=== PATIENT | male | born 1950 | race Caucasian/White ===

== ENCOUNTER 2024-02-13 11:35 | Outpatient (CLI) | payer MEDICARE, SELFPAY ==
--- NOTE | 2024-02-13 09:15 | DI.RAD_ITS ---
Exam(s) XR HIP RT COMPLETE AP PELVIS EXAM: XR HIP RT COMPLETE AP PELVIS CLINICAL HISTORY: right hip pain. TECHNIQUE: 2D digital imaging was performed of the right hip. Two images were obtained. AP pelvis a nd lateral right hip views were obtained. COMPARISON: CR XR HIP MIN 2V RT from 11/08/2023 CR XR LS SPINE 2-3 VIEWS from 11/08/2023 FINDINGS: BONES: No acute fracture is present. No bony destructive lesion is seen. There are lucencies with scl erotic periphery in the articular surface of the femoral heads bilaterally most suggestive of avascul ar necrosis. The findings are more prominent on the left. There is a subchondral cyst in the acetab ular roof on the left. JOINTS: No dislocation present. There is mild joint space narrowing in the right hip and moderate price nt space narrowing in the left hip. SOFT TISSUE: Vascular calcifications are present. IMPRESSION: 1. Mild degenerative changes seen in the hips bilaterally. 2. Findings in the femoral head suspicious for avascular necrosis. DATA REPOSITORY: RADIATION DOSE DELIVERED:
== END 2024-02-13 11:36 | disposition home or self-care (01) ==
LOC: DIORS 11:35
PROVIDERS: PCP Internal Medicine; Referring Provider Internal Medicine; Visit Provider Student in an Organized Health Care Education/Training Program
DX: M16.11 Unilateral primary osteoarthritis, right hip; I10 Essential (primary) hypertension; E11.9 Type 2 diabetes mellitus without complications; M54.50 Low back pain, unspecified
CPT/HCPCS: 99203; 73502

== ENCOUNTER → 2024-02-24 09:44 | Outpatient (BNVA) | payer MEDICARE, SELFPAY | PROVIDERS: PCP Internal Medicine; Referring Provider Internal Medicine | DX: M16.11 Unilateral primary osteoarthritis, right hip (principal) | CPT/HCPCS: 20611; J1010 ==

== ENCOUNTER → 2024-09-20 09:26 | Outpatient (BNVA) | payer MEDICARE, SELFPAY | PROVIDERS: PCP Internal Medicine; Referring Provider Internal Medicine; Visit Provider Student in an Organized Health Care Education/Training Program | DX: M16.12 Unilateral primary osteoarthritis, left hip (principal) | CPT/HCPCS: 20611; 99213; J1010 ==

== ENCOUNTER → 2024-11-29 08:26 | Outpatient (BNVA) | payer MEDICARE, SELFPAY | PROVIDERS: PCP Internal Medicine; Referring Provider Internal Medicine; Visit Provider Student in an Organized Health Care Education/Training Program | DX: M16.12 Unilateral primary osteoarthritis, left hip (principal) | CPT/HCPCS: 99214 ==

== ENCOUNTER 2025-01-14 02:08 | Outpatient (CLI) | payer MEDICARE, SELFPAY ==
[2025-01-14 09:35] LABS: HCT 39.9 % (40.0-50.0); HGB 13.2 g/dL (13.5-17.5); MCH 31.1 pg (27.0-33.0); MCHC 33.1 % (32.0-36.0); MCV 94 fL (80-95); MPV 10.2 fL (8.0-11.0); Platelet Count 337 10^3/uL (130-400); RBC 4.25 10^6/uL (4.36-5.78); RDW 11.9 % (11.8-14.1); RDW-SD 40.4 fL; WBC 7.81 10^3/uL (4.4-10.8)
[2025-01-14 09:49] LABS: BUN 21 mg/dL (7-18); CREATININE 0.9 mg/dL (0.70-1.30); Calcium 9.4 mg/dL (8.5-10.1); Chloride 105 mmol/L (98-107); Estimated GFR 89.62 (mL/min/1.73m2); Glucose 106 mg/dL (74-106); Potassium 4.3 mmol/L (3.5-5.1); Sodium 141 mmol/L (136-145)
[2025-01-14 09:50] LABS: Hemoglobin A1C 6.4 % (<5.7)
== END 2025-01-14 02:09 | disposition home or self-care (01) ==
LOC: LBO 02:08 → LBN ADD 09:26
PROVIDERS: PCP Internal Medicine; Visit Provider Student in an Organized Health Care Education/Training Program
DX: M16.12 Unilateral primary osteoarthritis, left hip (principal); Z01.818 Encounter for other preprocedural examination; E11.9 Type 2 diabetes mellitus without complications
CPT/HCPCS: 80048; 85027; 83036

== ENCOUNTER 2025-01-14 10:29 | Outpatient (CLI) | payer MEDICARE, SELFPAY ==
--- NOTE | 2025-01-14 08:00 | DI.RAD_ITS ---
Exam(s) XR PELVIS AP EXAM: XR PELVIS AP CLINICAL HISTORY: left hip DJD. TECHNIQUE: 2D digital imaging was performed. Single AP view. COMPARISON: CR XR LS SPINE 2-3 VIEWS from 11/08/2023 CR XR HIP MIN 2V RT from 11/08/2023 CR XR HIP RT COMPLETE AP PELVIS from 02/13/2024 FINDINGS: BONES: No acute fracture is present. No bony destructive lesion is seen. Sclerotic densities are again noted in the femoral heads, left greater than right. Subchondral cyst is again noted in the left superior acetabulum. JOINTS: No dislocation present. There is moderate narrowing of the left hip joint space and mild joint space narrowing on the right. Periarticular spurring is noted bilaterally, left greater than right. SOFT TISSUE: Normal. IMPRESSION: Moderate degenerative changes of the left hip. Mild degenerative changes of the right hip. 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 DATA REPOSITORY: RADIATION DOSE DELIVERED:
== END 2025-01-14 10:30 | disposition home or self-care (01) ==
LOC: DIORS 10:29
PROVIDERS: PCP Internal Medicine; Visit Provider Physician Assistant
DX: Z01.818 Encounter for other preprocedural examination (principal); M16.12 Unilateral primary osteoarthritis, left hip; I10 Essential (primary) hypertension
CPT/HCPCS: 99024; 72170

== ENCOUNTER 2025-01-22 05:53 | Day surgery (SDC) | payer MEDICARE, SELFPAY ==
[2025-01-22] VITALS (18 sets, daily range): BP systolic 111–139; BP diastolic 51–89; PULSE 46–77; RESP 8–21; TEMP 35.8–36.4; O2SAT 91–99; BMI 24.3
[2025-01-22] MEDS: Lactated Ringers 1,000 ML 80 ML IV (06:44)
[2025-01-22] MEDS: Celecoxib 200 MG CAP 400 MG PO (06:44)
[2025-01-22] MEDS: Acetaminophen 500 MG TAB 1000 MG PO (06:45)
--- NOTE | 2025-01-22 07:08 | W.ANESPRE ---
General Info Date of Service Date Performed: 01/22/25 Height: 6 ft 1 in Weight: 83.8 kg Body Mass Index (BMI): 24.3 Surgical Procedure: Operation Date: 01/22/25 07:50 Proposed Procedure Side Surgeon p Hip Total Hip Anterior, ACTIS Left Sherwin Leal MD Actual Procedure Side Surgeon p Hip Total Hip Anterior, ACTIS Left Sherwin Leal MD Meds Allergies and Home Medications Allergies Allergy/AdvReac Type Severity Reaction Status Date / Time No Known Allergies Allergy Verified 01/22/25 06:25 Home Medication ?Medication ?Instructions ?Recorded atorvastatin 10 mg tablet 10 mg PO DAILY 12/20/23 donepezil 10 mg tablet 10 mg PO QHS 12/20/23 lisinopril 20 mg tablet 20 mg PO DAILY 12/20/23 memantine 10 mg tablet 10 mg PO QPM 12/20/23 metformin 500 mg tablet 500 mg PO DAILY 12/20/23 calcium carbonate 600 mg PO DAILY 01/14/25 cholecalciferol (vitamin D3) 25 25 mcg PO DAILY 01/14/25 mcg (1,000 unit) capsule [id number] 300 mcg-K 60 1 tab PO DAILY 01/14/25 mcg-lycop 600 mcg-lutein 300 mcg tablet (Centrum Silver Men) acetaminophen 500 mg tablet 1,000 mg (2 x 500 mg) PO Q8H PRN 01/22/25 pain #90 tabs aspirin 81 mg tablet,delayed 81 mg PO BID 30 days #60 tabs 01/22/25 release celecoxib 200 mg capsule (Celebrex) 200 mg PO BID PRN #60 caps 01/22/25 dexamethasone 4 mg tablet 4 mg PO DAILY #2 tabs 01/22/25 docusate sodium 100 mg capsule 100 mg PO BID #28 caps 01/22/25 (Colace) oxycodone 5 mg tablet 5 mg PO Q6H PRN #12 tabs 01/22/25 pantoprazole 40 mg tablet,delayed 40 mg PO DAILY #14 tabs 01/22/25 release Current Visit Medications: Current Medications Generic Name Dose Route Start Last Admin Trade Name Freq PRN Reason Stop Dose Admin Acetaminophen 1,000 mg 01/22/25 06:00 01/22/25 06:45 Acetaminophen 500 Mg Tab PO 01/22/25 23:59 1,000 mg PREOP JOHNATHAN Administration Celecoxib 400 mg 01/22/25 06:00 01/22/25 06:44 Celecoxib 200 Mg Cap PO 01/22/25 23:59 400 mg PREOP JOHNATHAN Administration Ringer's Solution 1,000 mls @ 80 mls/hr 01/22/25 06:00 01/22/25 06:44 IV 01/22/25 23:59 80 mls/hr INFUSION JOHNATHAN Administration Cefazolin Sodium/Dextrose 2 gm in 50 mls @ 100 mls/hr 01/22/25 06:00 Ancef Duplex IVPB 01/22/25 23:59 PREOP JOHNATHAN Tranexamic Acid/Sodium Chloride 1,000 mg in 100 mls @ 600 mls/hr 01/22/25 06:00 IVPB 01/22/25 23:59 PREOP JOHNATHAN IV Miscellaneous Supplies 1 each 01/22/25 06:00 Iv Access IV 01/22/25 23:59 DIRECTED JOHNATHAN Sodium Chloride 0 ml 01/22/25 06:00 Normal Saline Flush 10 Ml Syr IV 01/22/25 23:59 PRN PRN Sodium Chloride 0 ml 01/22/25 06:00 Normal Saline 10 Ml Vial IJ 01/22/25 23:59 DIRECTED PRN Sterile Water 0 ml 01/22/25 06:00 Water,Injection,Sterile 10 Ml Vial IJ 01/22/25 23:59 DIRECTED PRN PFSH Active Problems Active Problems: Problem Status Onset Code Osteoarthritis of left hip Acute M16.12 Type 2 diabetes mellitus Acute E11.9 Minimal cognitive impairment Acute G31.84 Hypertension Chronic I10 Hyperlipidemia Acute E78.5 Helicobacter pylori (H. 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 Surgical History Surgical History History of esophagogastroduodenoscopy (EGD) History of colonoscopy Tobacco Smoking/Tobacco Use Status: Former Tobacco Use Alcohol Alcohol Intake: current Alcohol intake frequency: 0-2 drinks per day Alcohol type: wine Substance Use Substance use type: does not use Vital Signs and Lab Results Vital Signs Most Recent Vital Signs in EMR: Most Recent Vital Signs Temp Pulse Resp BP Pulse Ox 36.3 C L 56 L 16 128/82 99 01/22/25 06:27 01/22/25 06:27 01/22/25 06:27 01/22/25 06:27 01/22/25 06:27 Point of Care Results Point of Care Results: Finger Stick Blood Glucose 131 01/22/25 06:15 Lab Results Complete Blood Count: WBC, (4.4-10.8) 7.81 10^3/uL 01/14/25, 09:05 RBC, (4.36-5.78) 4.25 10^6/uL L 01/14/25, 09:05 Hgb, (13.5-17.5) 13.2 g/dL L 01/14/25, 09:05 Hct, (40.0-50.0) 39.9 % L 01/14/25, 09:05 Plt Count, (130-400) 337 10^3/uL 01/14/25, 09:05 Complete Metabolic Panel: Sodium, (136-145) 141 mmol/L 01/14/25, 09:05 Potassium, (3.5-5.1) 4.3 mmol/L 01/14/25, 09:05 Chloride, (98-107) 105 mmol/L 01/14/25, 09:05 Carbon Dioxide, (21.0-32.0) 28.0 mmol/L 01/14/25, 09:05 BUN, (7-18) 21 mg/dL H 01/14/25, 09:05 Creatinine, (0.70-1.30) 0.9 mg/dL 01/14/25, 09:05 Est GFR (CKD-EPI 2020), (mL/min/1.73m2) 89.62 01/14/25, 09:05 Calcium, (8.5-10.1) 9.4 mg/dL 01/14/25, 09:05 Glucose, (74-106) 106 mg/dL 01/14/25, 09:05 Hemoglobin A1c, (<5.7) 6.4 % H 01/14/25, 09:05 Anesthesia Assessment and Plan Anesthesia History Personal History: No History of Anesthesia Complications Family History: No Family History of Anesthesia Complications Exercise Tolerance Exercise Tolerance: Metabolic Equivalents>4 Pertinent Negatives Pertinent Negatives: No Symptoms of GERD, No Major Cardiovascular Symptoms or Complaints, No Major Pulmonary Symptoms or Complaints and No History of CVA/TIA Cardiac & Pulmonary Exam Cardiac Exam: Normal S1/S2 Heart Sounds Pulmonary Exam: Clear Bilateral Breath Sounds Implantable Cardiac Device Does patient have a Pacemaker or an ICD?: No Airway Exam Known Difficult Airway: No Mallampati Class: 2 Mouth Opening: Normal (> 3cm) Thyromental Distance: Greater than 3 cm Neck Range of Motion: Full ROM Neck Circumference: Normal Teeth Condition: Normal Dentition and Removable Dentures/Plates Upper (upper partial plate ) ASA Classification ASA Score: ASA 2 Emergency Case?: No NPO Status NPO Status: NPO Clears >2 hours, Solids >8 hours Anesthesia Plan Resuscitation Status: Full Code Anesthesia Technique: Spinal Anesthesia Airway Planned: Natural Airway Monitors Used: Standard Monitors
--- NOTE | 2025-01-22 07:12 | W.PM.DSUDISC ---
Date of service: 01/22/25 Discharge Plan Disposition Patient Disposition: Home Condition: Good Discharge Details Reason For Visit: Left hip DJD Attending Provider: Sherwin Leal Primary Care Provider: Janett June Home Meds and New Rx's Prescriptions: New celecoxib [Celebrex] 200 mg capsule 200 mg PO BID PRNQty: 60 0RF Rx Instructions: Take one tablet twice daily for pain and inflammation aspirin 81 mg tablet,delayed release (DR/EC) 81 mg PO BID 30 Days Qty: 60 0RF acetaminophen 500 mg tablet 1,000 mg PO Q8H PRN Qty: 90 0RF Rx Instructions: Take two tablets up to every 8 hours as needed for pain pantoprazole 40 mg tablet,delayed release (DR/EC) 40 mg PO DAILY Qty: 14 0RF dexamethasone 4 mg tablet 4 mg PO DAILY Qty: 2 0RF Rx Instructions: Take one tablet once daily for two days docusate sodium [Colace] 100 mg capsule 100 mg PO BID Qty: 28 0RF oxycodone 5 mg tablet 5 mg PO Q6H PRNQty: 12 0RF Rx Instructions: Take one tablet up to every 6 hours as needed for severe postoperative pain Continued atorvastatin 10 mg tablet 10 mg PO DAILY donepezil 10 mg tablet 10 mg PO QHS lisinopril 20 mg tablet 20 mg PO DAILY metformin 500 mg tablet 500 mg PO DAILY memantine 10 mg tablet 10 mg PO QPM calcium carbonate 600 mg calcium (1,500 mg) tablet 600 mg PO DAILY cholecalciferol (vitamin D3) 25 mcg (1,000 unit) capsule 25 mcg PO DAILY Centrum Silver Men [id number] mcg tablet 1 tab PO DAILY Discontinued ibuprofen [Advil] 200 mg tablet 200 mg PO DAILY PRN Discharge Instructions Additional Instructions: Total Hip Discharge Instructions Activity: The most important activity is to walk. You should try to take short walks a few times a day. You have no restrictions on movement or positioning, but do not try to force what you do. You will find some stiffness and weakness with hip flexion (lifting your knee). Do not try to strengthen this too early, continue to practice walking and stairs and this will come. - Outpatient physical therapy can be helpful to help return you to a normal gait and improve your flexibility and strength. This can start around 2 weeks. For some patients, it?s not necessary. Usually this is determined at the time of discharge or at the first post-operative visit. - You should wear the SIA hose on both legs for 2 weeks. Dressing: Keep the surgical dressing in place for at least one week. After the first week it may be removed and replace with light gauze and tape or nothing. It may get wet after 3 days but avoid soaking the dressing. If it gets wet, just lightly pat dry. It is important to always keep some gauze between skin folds, especially when you are sitting. Spend some time with the wound exposed when you are lying flat as the incision does wrinkle onto itself. Medications: - You should take Tylenol and an anti-inflammatory Celebrex as your primary pain control medications. If the Celebrex is too expensive or not covered, please call the office for another alternative (Advil/Ibuprofen or Naproxen/Aleve). - You have been prescribed a stronger pain medication Oxycodone for breakthrough pain, take as needed as prescribed. - You have also been prescribed a stomach acid reduction agent Pantoprozole to help reduce stomach acid and reflux. - You have also been prescribed Decadron to help with post-operative nausea and pain. You will take this for two days starting tomorrow. - You will be taking Aspirin 81mg twice a day for DVT prevention unless instructed otherwise. - If you have constipation you should take Colace (which has been prescribed) or Miralax (which is available [id number]). It takes most people 3-4 days to have a bowel movement. Follow-up: 2 weeks If you have any acute concerns or questions, please do not hesitate to contact the office at [phone]. You may contact Dr. Leal with any questions after hours through the hospital at [phone] or on his cell phone at [phone]. Referrals: Sherwin Leal MD [ [facility] STAFF PHYSICIAN, Orthopaedic Surgical] Equipment/Supplies: Walker Activity:: Elevate Remove Dressings/Wound Care:: Do Not Remove Shower/Bathe:: Cover Diet:: As Tolerated Discharge Orders Discharge Orders: Discharge Order (Routine); Ordered 01/22/25 Ordered By: Letty Willard
[2025-01-22] MEDS: ceFAZolin 2 GM/50 ML BAG IVPB (08:00)
[2025-01-22] MEDS: TRANEXAMIC ACID/SOD. CHL. 1,000 MG/100 ML BAG 600 MG IVPB (08:13)
--- NOTE | 2025-01-22 09:15 | DI.RAD_ITS ---
Exam(s) XR HIP LT IN OR EXAM: XR HIP LT IN OR CLINICAL HISTORY: Osteoarthritis of left hip. TECHNIQUE: 2D digital imaging was performed. COMPARISON: No exams were available for comparison FINDINGS: Fluoroscopy was provided during left hip arthroplasty. See procedure report for details. Total fluoroscopy time 26 seconds IMPRESSION: Radiation exposure index/cumulative dose:Jazzr= 2.9877mGy DATA REPOSITORY: RADIATION DOSE DELIVERED:
[2025-01-22] MEDS: fentaNYL 100 MCG/2 ML VIAL IVP (10:01)
--- NOTE | 2025-01-22 10:38 | W.ANESPOSTOP ---
Postoperative Evaluation Date, Time and Location Date Performed: 01/22/25 Time Performed: 10:35 Patient Location: Day Surgery Unit Vital Signs Most Recent Imported Vital Signs: Most Recent Vital Signs Temp Pulse Resp BP Pulse Ox 35.8 C L 54 L 16 132/73 98 01/22/25 10:27 01/22/25 10:27 01/22/25 10:27 01/22/25 10:27 01/22/25 10:27 Pain Score Most Recent Pain Score: Most Recent Pain Score Pain Level 3 01/22/25 10:27 Assessment Mental Status: Awake (Alert & Oriented to Patient Baseline) Airway and Respiratory Function: Patent airway with normal (patient baseline) respiratory exam Cardiovascular Function: Hemodynamically Stable Hydration Status: Adequately Hydrated Nausea & Vomiting: No Nausea or Vomiting Pain: Pain is tolerable per patient Peripheral Nerve Block: Patient did not receive a nerve block
--- NOTE | 2025-01-22 10:57 | ROE_ITS ---
Operative Note Operative Note PRE-OP DIAGNOSIS: Left Hip Osteoarthritis POST-OP DIAGNOSIS: same PROCEDURE: Left Anterior Total Hip Arthroplasty with Intraoperative Navigation SURGEON: Sherwin Leal SLEEP MEDICINE PHYSICIAN: Letty Willard ANESTHESIA TYPE: Spinal Refer to Anesthesia Record ESTIMATED BLOOD LOSS: 200 PATHOLOGY: none sent TOURNIQUET TIME: 0 COMPLICATIONS: None Patient was transported to: PACU Patient's condition: stable Implants: 1. Depuy Montezuma Acetabular Component, 58mm 2. Depuy Acetabular Liner, [id number] 3. Depuy Actis High Offset Collared Femoral Stem, Size 9 4. Depuy Altrx Ceramic Femoral Head, Size 36+1.5mm Indications: I have seen Hilton in clinic for symptoms of hip arthritis, confirmed with radiographic findings. He has exhausted nonoperative methods and was having significant limitations in daily function and desired better function and less pain. I discussed the technical details of a hip replacement. I explained the risks of the procedure to include, but not limited to, bleeding, infection, pain, stiffness, fracture, damage to nerves and vessels, damage to muscles and tendons, loosening, instability, leg length inequality, need for repeat procedure, blood clot and cardiopulmonary demise. Despite these risks, Hilton elected to proceed. Findings: There was significant signs of arthritis throughout the hip with notable deformity and sclerosis and osteophytes about the acetabulum. Procedure Description: Hilton was greeted in the preoperative holding area where the correct side was identified and marked. The consent was reviewed with the patient and signed. The history and physical was updated. All questions were answered. He was taken back to the operating room. A spinal anesthestic was then administered. The feet were wrapped with cast padding and Coban and then placed into the boot liners and then into the boots. Care was taken to protect the skin and make sure the heels were fully down and the boots were stable. The patient was then positioned onto the HANA table. Both legs were held in a neutral position. SCDs were applied. The patient was then slid down onto a peroneal post. Prophylactic antibiotics in the form of Cefazolin were administered. 1g of Tranxemic Acid was given intravenously within 30 minutes of incision. The left leg was then prepped with Chloraprep and draped in a standard fashion. A second prep with Chloraprep was performed prior to p lacement of a shower-curtain type drape with Iodine impregnated skin protection. A timeout to confirm correct identity, side and site, procedure, allergies, anesthesia, and medical concerns was performed. An obliquely oriented incision was made starting lateral to the ASIS and running distal over the Tensor Fascia Rupinder (TFL) muscle belly toward the fibular head, approximately 10cm. At this point he was noted to have some distal leg motion and thus the spine was deemed an adequate. He was thus converted to a general anesthetic. The skin and soft tissue was dissected sharply, through Xin?s fascia, and to the fascia of the TFL. With the fascia and superior border of the IT band identified, the fascia was incised with a new knife just above any perforators from the IT band. The TFL muscle belly was bluntly dissected away from the fascia and moved laterally. The fat between TFL and rectus was identified to ensure the dissection was not within the TFL. Blunt dissection created space between abductors and the capsule and retractor was placed over the lateral femoral neck. The fibers of the rectus femoris tendon were identified and these were freed from the anterior capsule. A second cobra retractor was placed around the medial femoral neck. The TFL was further retracted laterally to show the deep fascia. Careful dissection through this layer identified three main crossing vessels of the lateral femoral circumflex. These were cauterized in multiple locations and then cut without any noticeable bleeding. The TFL was further released bluntly from the deep fascia to expose anterior hip capsule and fat The soft tissue orthopaedic retractor was then placed beneath the TFL and against sartorius and medial soft tissues to protect and retract the soft tissues. A T-capsulotomy was then performed starting at the superior lateral acetabulum and moving distally to the intertrochanteric ridge. These capsular flaps were tagged with a No. 1 Vicryl and elevated from within. The capsular flaps were released to the shoulder of the lateral neck and to the lesser trochanter to give excellent visualization of the proximal femur. A neck osteotomy was performed using an oscillating saw based on preoperative templates. This cut started in the shoulder and of the lateral neck and exited medially. The saw was at all times directed medially to avoid injury to the gr eater trochanter. Gross traction was applied to the leg and the osteotomy opened. The femoral head was removed with a corkscrew, making sure to protect the TFL on its exit. Traction was released after head removal. This was measured on the back table to determine the starting reamer size. Portions of the rectus obscuring visualization were minimally elevated off the superior acetabulum. An anterior retractor was placed over the anterior wall between capsule and labrum and attached to the Gripper retraction system. The femur was rotated to 90 degrees and medial capsule was fully released until the lesser trochanter was palpable and visible; the femur was returned to 30 degrees. A posterior retractor was placed similarly between capsule and labrum. This provided excellent visualization. The contents of the cotyloid fossa were removed with electrocautery and the labrum was removed with a knife. There was a notable floor osteophyte. There was significant chondromalacia of the s uperior acetabulum. Acetabular reaming began with a 51mm reamer. This first reaming was directed anterior to posterior and medial to get down to the true floor. This was inspected and reamed until the true floor was reached. The anterior retractor was then released and entry and exit was provided by traction on the capsular flaps. I then reamed sequentially up to a 58mm reamer where good fit was obtained. The larger reamers were oriented based on anatomical reference of the anterior and lateral johansen to ensure proper abduction and anteversion. Positioning and size was confirmed with the fluoroscopy. A 58mm Depuy Montezuma acetabular component was selected. The deep tissues were irrigated. The acetabular component was then impacted in a position of about 40-45 degrees of abduction and 15-20 degrees of anteversion, using the patient?s anatomy as the ultimate landmark. Fluoroscopy was used to confirm this. There was excellent senior manager mmcoe of the acetabular component and the inserting handle was removed. The acetabular liner, Depuy [id number] polyethylene liner, was inserted and lined up with the tines of the acetabular component. There was no soft tissue interposition. The liner was then impacted into position and confirmed to be well-seated. A portion of the nicholas-articular cocktail was then injected around the acetabulum into the capsule and periosteum. This cocktail consisted of 123mg of Ropivacaine, 0.25mg of Epinephrine, 0.04mg of Clonidine, and 15mg of Ketorolac, diluted to 50cc. The leg was rotated to 120 degrees. Any remaining medial capsule was released u ntil the lesser trochanter was easily palpable. A retractor was placed medially. The lateral capsule was further released into the shoulder to allow access to the greater trochanter. A Da Silva retractor was placed over the greater trochanter which allowed the trochanter to flip in front of the capsule for excellent exposure. The leg was brought down into maximal extension and 20 degrees of adduction while ensuring there was no impingement on the acetabulum. Any remnant capsule within the trochanter was released. Piriformis and obturator externis were identified and protected. There was excellent access to the proximal femur. The lateral neck remnant was removed with a rongeur. A blunt canal probe was used to identify the canal and trajectory for later broaching. A box osteotome initiated the broach course. A small curved rasp and a curved curette were used to work laterally. Broaching then began with a starter Actis broach. This was inserted manually around the trochanter and into the canal before mallet blows. The broach was seated to a few millimeters below the cut level based on the neck cut and the preoperative template. Sequential broaching was continued with the CombiMatrix pneumatic broaching device until a tight fit was obtained with good rotational control of the femur. A trial high offset neck was inserted along with a +1.5 trial head. The leg was brought out of extension and adduction and then reduced with traction and internal rotation. The leg was stable anteriorly in a position of 30 degrees of extension and 90 degrees of external rotation. Fluoroscopy was used to ensure there was no fracture and the stem was seated well. Leg lengths were checked with an AP pelvis and pelvic reference points. [employer] navigation system was used to confirm appropriate positioning and leg length and offset. The stem was advanced 5mm. Once content with the desired offset and leg lengths, the leg was brought back into extension, external rotation and adduction. The periosteum and surrounding tissue was injected with remaining portion of the nicholas-articular cocktail. The proximal femur was irrigated as well as the deep tissues. The Depuy Actis High Offset collared stem, size 9, was then manually inserted into the proximal femur making sure to control rotation. It was then malleted into position with light blows, giving breaks to allow bone expansion and decrease risk of fracture. The selected Depuy Altrx Ceramic Head, size 36+1.5mm, was then placed onto the clean and dry trunnion and secured with impaction onto the tapered fit. The leg was brought back out of extension and adduction and reduced with traction and internal rotation. Stability was confirmed with no shuck at 90 degrees of external rotation and 30 degrees of extension. No impingement through range of motion arc. Final x-ray images were obtained with fluoroscopy to confirm adequate positioning and no intraoperative fracture. The deep tissues were thoroughly irrigated with Surgiphor, betadine solution. This was allowed to sit in the wound for 3 minutes before being thoroughly irrigated out with normal saline. The capsule was then reapproximated with the previously placed sutures and the indirect head of the rectus was inspected and reapproximated with a #1 Vicryl. The TFL fascia was finally closed with a No. 2 Stratafix, barbed suture. Deep tissues were then reapproximated with 0 Vicryl and a running 2-0 Vicryl. The skin was closed with a running 4-0 Monocryl in a subcuticular fashion. This was reinforced with skin glue. A Mepilex silver dressing was applied. At the end of the case, all counts were correct. Hilton was transferred to the hospital bed without difficulty and suffering no apparent complication. He has a good prognosis. Physical therapy will start today and without restrictions, weight-bearing as tolerated. Aspirin 81mg BID will be used for DVT prophylaxis. Date of Procedure: 01/22/25
[2025-01-22] MEDS: Tranexamic Acid 650 MG TAB 1300 MG PO (11:03)
[2025-01-22] MEDS: oxyCODONE 5 MG TAB PO (11:04)
--- NOTE | 2025-01-22 11:05 | PT.INIE ---
PT Notes Visit Reasons: Left hip DJD Physical Therapy Day Surgery Initial Evaluation Date: 01/22/2025 Referring Doctor: melquiades Willard NP; Dr Leal PT Orders: PT CONSULT:s/p Ortho Surgery Precautions:WBAT LLE Patient Profile/Admitting Diagnosis: Hilton is a 74 yo male presenting s/p elective left CHAYA under general anesthesia by Dr Leal on 01/22/2025. Post op uncomplicated. PMHX: Osteoarthritis of left hip (Acute) POCUS INJECTION 09/20/24Type 2 diabetes mellitus (Acute) Minimal cognitive impairment (Acute) Hypertension (Chronic) Hyperlipidemia (Acute) Helicobacter pylori (H. pylori) (Acute) Anemia (Chronic) Degenerative joint disease of right hip (Chronic) POCUS INJECTION 02/24/24 Surgical History (Updated 05/16/24 @ 13:38 by Lolly Null RN) History of esophagogastroduodenoscopy (EGD) History of colonoscopy Social History/Home Situation: Pt resides with in [facility] with 5 steps to enter with left rail. Pt independent ambulation and ADL. manages medications and finances d/t cognitive impairment. provides oversight for tasks and daily activities Equipment Owned/DME: [facility] Subjective:Pt states he feels okay but it is sore. He wants to go home. Objective: [] General Observation: male supine on stretcher. ice to left hip. present. Mental Status: A+Ox1 pt with cognitive impairment, unable to state where he is , year , mild word finding deficits. Able to follow instructions with visual and tactile cues. Pain: it is sore pointing to anterior hip ROM: [] BUE: WNL RLE: WNL Left Lower Extremity: WNL knee and ankle, hip abduction 12 degrees flexion 95 degrees, IR to neutral. Strength: [] BUE: 5/5 Right Lower Extremity: 5/5 Left Lower Extremity: hip 3-/5, knee 3/5 ankle >/=to 3/5 Sensation: intact touch and pain Bed Mobility/Transfers: [] Supine to sit supervision Sit to stand supervision cues to push up Stand to sit supervision cues to reach back Bed to chair supervision with [facility] cues for safe approach Gait: amb with [facility] SBA 150 feet decreased step length LLE, decreased knee flexion LLE, circumduction LLE. Stairs: 5 steps with 2 rails SBA cues for sequencing; 5 steps with one rail CGA and cues for sequencing. able to demonstrate appropriate cueing and CGA for stair performance Balance: [] Static Sitting: Normal Dynamic Sitting: Good + Static Standing: Good Dynamic Standing: Fair + Special Tests: [] Mobility Limitations Standardized Measure [] [facility] AM-PAC 6 clicks Basic Mobility Inpatient Short Form: [] Raw Score: 23 CMS Score:11.20% Informed Consent/Education: Patient instructed in purpose of PT consult. Treatment 27476: Packet containing CHAYA exercise protocol has been given to patient and . Education and training on initial set of 10 reps ofexercises that can be done at home have been completed with patient.His able to provide appropriate cueing to complete HEP Assessment: Patient is 74 yo male who presents with clinical signs and symptoms consistent with current/admitting diagnoses that have resulted to mobility limitations, gait instability, generalized weakness, and impairment of motor control as demonstrated by the following impairment level findings: 1. Decreased strength to left hip major muscle groups 2. Impaired standing balance 3. Limitation of joint range of motion in left hip 4. Left hip pain 5. Impaired Functional activity tolerance 6. cognitive impairment Impairments are contributing to the following functional limitations: 1. Inability to safely ambulate without assistive device 2. Increase completion time for mobility ADL performance 3. Increased fall risk 4. diffidulty performing stairs without assistance Patient is assessed as a moderate complexity based on the following: History: 74-year-old male with impairment level findings, functional limitations, and past medical history as indicated above Examination: Demonstrable impairment in strength, balance, and mobility level with underlying impairments and functional limitations as documented above Presentation: stable Decision Making: moderate Goals: N/A. PT evaluation and 1-2 treatment sessions only for functional mobility training using recommended AD and for HEP instruction. Plan of Care/Treatment Plan: N/A. PT evaluation and 1-2 treatment session only for functional mobility training using recommended AD and for HEP instruction. DISCHARGE RECOMMENDATIONS:Home with HEP with supervision from d/t cognitive impairment TREATMENT CODE/TIME: 81417,[id number]/ [id number] Thank you for the opportunity to participate in the care of this patient. Christie He, PT [facility]
== END 2025-01-22 12:04 | disposition home or self-care (01) ==
PROVIDERS: PCP Internal Medicine; Visit Provider Student in an Organized Health Care Education/Training Program
PROC: (CPT 27130; principal; 2025-01-22 07:30)
DX: M16.12 Unilateral primary osteoarthritis, left hip (principal)
CPT/HCPCS: 20985; 27130; 97110; 97162; 73501; C1776; J0690; J1100; J2401; J2405; J2704; J3010

== ENCOUNTER 2025-02-04 09:02 | Outpatient (CLI) | payer MEDICARE, SELFPAY ==
--- NOTE | 2025-02-04 08:30 | DI.RAD_ITS ---
Exam(s) XR HIP LT COMPLETE AP PELVIS EXAM: XR HIP LT COMPLETE AP PELVIS CLINICAL HISTORY: 1ST POST OP S/P L CHAYA. TECHNIQUE: 2D digital imaging was performed. Two views. COMPARISON: CR XR PELVIS AP from 01/14/2025 FINDINGS: BONES: No acute fracture is present. No bony destructive lesion is seen. JOINTS: Stable alignment of left hip prosthesis. The SI joints and pubic symphysis are intact. There are mild degenerative changes of the right hip. SOFT TISSUE: Normal. IMPRESSION: Stable appearance of left hip prosthesis. DATA REPOSITORY: RADIATION DOSE DELIVERED:
== END 2025-02-04 09:03 | disposition home or self-care (01) ==
LOC: DIORS 09:02
PROVIDERS: PCP Internal Medicine; Visit Provider Physician Assistant
DX: Z47.1 Aftercare following joint replacement surgery (principal); Z96.642 Presence of left artificial hip joint; M25.512 Pain in left shoulder
CPT/HCPCS: 99024; 73502

== ENCOUNTER → 2025-03-04 08:09 | Outpatient (BNVA) | payer MEDICARE, SELFPAY | PROVIDERS: PCP Internal Medicine; Referring Provider Internal Medicine; Visit Provider Physician Assistant | DX: Z47.1 Aftercare following joint replacement surgery (principal); Z96.642 Presence of left artificial hip joint | CPT/HCPCS: 99024 ==